=== PATIENT | female | born 1985 | race Caucasian/White ===

== ENCOUNTER 2016-12-23 21:07 | Emergency (ER) | payer OTHER ==
[2016-12-24] MEDS ORDERED: Dexamethasone Oral Solution* 1 MG/ML 10 ML UDC (10 MG) PO ONE (00:15)
--- NOTE | 2016-12-24 00:39 | ED ---
Throat Pain/Nasal Congestion - HPI Summary HPI Summary: 31F presents with throat pain for a week. She states she was sick a week ago with a sore throat but that seemed to get better and then her sore throat got worst. Her bf has similar symptoms. She admits to sinus congestion and a cough occasionally. She denies any fever or ear pain. She states that is it difficult to swallow. She is still able to eat and drink. She denies any chest pain or SOB. - History of Current Complaint Chief Complaint: EDThroatPain Time Seen by Provider: 12/23/16 23:42 - Allergies/Home Medications Allergies/Adverse Reactions: Allergies Allergy/AdvReac Type Severity Reaction Status Date / Time enviromental Allergy Sneezing Uncoded 07/25/15 13:52 PMH/Surg Hx/FS Hx/Imm Hx Endocrine/Hematology History: Denies: Hx Diabetes Cardiovascular History: Denies: Hx Hypertension, Hx Pacemaker/ICD Respiratory History: Reports: Hx Asthma - exercise induced History: Denies: Hx Renal Disease Sensory History: Denies: Hx Hearing Aid Psychiatric History: Denies: Hx Panic Disorder - Surgical History Surgery Procedure, Year, and Place: HERNIA AT AGE 4; Infectious Disease History: No Infectious Disease History: Reports: Traveled Outside the [place] in Last 30 Days - Family History Known Family History: Positive: Hypertension - Social History Alcohol Use: Occasionally Substance Use Type: Reports: None Smoking Status (MU): Never Smoked Tobacco Review of Systems Negative: Fever Positive: Sore Throat Negative: Chest Pain Negative: Shortness Of Breath All Other Systems Reviewed And Are Negative: Yes Physical Exam Triage Information Reviewed: Yes Vital Signs On Initial Exam: Initial Vitals Temp Pulse Resp BP Pulse Ox 99.5 F 84 18 140/78 100 12/23/16 21:20 12/23/16 21:20 12/23/16 21:20 12/23/16 21:20 12/23/16 21:20 Vital Signs Reviewed: Yes Appearance: Positive: Well-Appearing Skin: Positive: Warm, Dry Head/Face: Positive: Normal Head/Face Inspection Eyes: Positive: Normal, EOMI, ADRIANNA, Conjunctiva Clear ENT: Positive: Pharyngeal erythema, TMs normal, Tonsillar swelling, Other - uvula midline, no soft palate swelling. Negative: Tonsillar exudate, Trismus, Muffled/hoarse voice Neck: Positive: Supple, Nontender, No Lymphadenopathy Respiratory/Lung Sounds: Positive: Clear to Auscultation, Breath Sounds Present Cardiovascular: Positive: Normal, RRR - [place] Coma Scale Coma Scale Total: 15 Diagnostics - Vital Signs Vital Signs Temp Pulse Resp BP Pulse Ox 12/23/16 23:47 99.1 F 80 16 124/87 99 12/23/16 23:39 80 99 12/23/16 23:38 124/87 12/23/16 23:00 99.0 F 79 20 130/76 100 12/23/16 21:20 99.5 F 84 18 140/78 100 - Laboratory Lab Results: Lab Results 12/23/16 Range/Units 22:45 Group A Strep Rapid Negative (Negative) Lab Statement: Any lab studies that have been ordered have been reviewed, and results considered in the medical decision making process. EENT Course/Dx - Course Course Of Treatment: 31F presents with throat pain for a week. She states she was sick a week ago with a sore throat but that seemed to get better and then her sore throat got worst. Her bf has similar symptoms. She admits to sinus congestion and a cough occasionally. She denies any fever or ear pain. She states that is it difficult to swallow. She is still able to eat and drink. She denies any chest pain or SOB. on exam tonsil+2, uvula midline and soft palate normal. strept neg. will treat with decadron and magic mouth wash. patient understands and agrees with plan - Differential Diagnoses Differential Diagnoses: Pharyngitis, Tonsilitis, Other - strept - Diagnoses Provider Diagnoses: Pharyngitis Discharge - Discharge Plan Condition: Good Disposition: HOME Prescriptions: Dexamethasone TAB* [Decadron TAB*] 4 mg PO DAILY #4 tab Magic Mouth Was-MARCELINO/MAAL/LIDO* 5 ml SWISH SPIT QID #100 ml Patient Education Materials: Pharyngitis (ED) Referrals: Jan Encinas MD [Primary Care Provider] - Additional Instructions: Magic mouthwash can use 4x a day Take steroid once a day, starting tomorrow Take Tylenol or ibuprofen for pain Can gargle salt water Can use cough drops or products such as cloraseptic spray Return to ED if develop fever, inability to swallow, or difficulty breathing or any new or worsening symptoms
[2016-12-24 01:00] VITALS: BP 118/70
== END 2016-12-24 01:00 | disposition home or self-care (01) ==
LOC: ED 21:07
DX: J02.9 Acute pharyngitis, unspecified (principal); J45.990 Exercise induced bronchospasm
CPT/HCPCS: 87502; 87651; 99282